=== PATIENT | male | born 1955 | race Caucasian/White ===

== ENCOUNTER 2017-06-15 21:01 | Inpatient (IN) | payer OTHER, MEDICAID ==
[~2017-06-15] VITALS: Ht 193 cm; Wt 88.5 kg
[~2017-06-15 21:01] MED LIST: DILANTIN100 MG ORAL; ISENTRESS400 MG PO; LEVETIRACETAM750 MG PO; NORVIR100 M2 PO; PRINIVIL20 MG ORAL; PROZAC10 MG ORAL; TRUVADA1 TAB PO; UNOBMED; ZIDOVUDINE300 MG PO; [UNRECOGNIZED DRUG - OTHER]; antiviral; vitamins
[2017-06-15 22:00] VITALS: BP 152/82
--- NOTE | 2017-06-15 22:19 | Emergency Room Report ---
History of Present Illness General Chief Complaint: Seizure Source: Patient Present Illness HPI 61-year-old male, history of seizures, HIV (unknown CD4 count ), presenting with seizure. History obtained by EMS, states that patient was found on the street, patient stated that he had a seizure prior to EMS arrival. EMS found him awake alert, intoxicated. Patient is ANO x2, however not providing good history. Denies drinking or drugs today. Patient states that he gets seizures "all the time", states that he does not take his phenytoin States that he is currently homeless Patient denying any complaints at this time Allergies: Coded Allergies: CHLORPROMAZINE (Unverified Allergy, Unknown, 02/04/16) Patient History Past Medical History: see triage record Past Surgical History: none Pertinent Family History: none Reviewed Nursing Documentation: PMH: Agreed, PSxH: Agreed Nursing Documentation-PMH Hx Cardiac Problems: No - HIV Hx Hypertension: Yes Hx Diabetes: Yes Hx Cancer: No Hx Gastrointestinal Problems: No Hx Neurological Problems: Yes Hx Cerebrovascular Accident: Yes Hx Seizures: Yes Review of Systems All Other Systems: negative except mentioned in HPI Physical Exam Vital Signs Date Time Temp Pulse Resp B/P (MAP) Pulse Ox O2 Delivery O2 Flow Rate FiO2 06/15/17 21:53 98.1 80 16 152/82 100 Room Air Sp02 EP Interpretation: reviewed, normal General Appearance: non-toxic, other - Disheveled middle aged male, intoxicated , however conversing, following commands Head: normocephalic, atraumatic Eyes: bilateral eye normal inspection, bilateral eye PERRL, bilateral eye EOMI ENT: normal ENT inspection, normal pharynx, normal voice, moist mucus membranes Neck: normal inspection, full range of motion, supple Respiratory: normal inspection, lungs clear, normal breath sounds, no respiratory distress, no retraction, no wheezing, speaking full sentences, chest symmetrical Cardiovascular #1: normal inspection, regular rate, rhythm, no edema, normal capillary refill Cardiovascular #2: 2+ radial (R), 2+ radial (L) Gastrointestinal: normal inspection, non tender, soft, non-distended, no guarding Genitourinary: no CVA tenderness Musculoskeletal: normal inspection, back normal, normal range of motion, non- tender Neurologic: normal inspection, alert, oriented x3, responsive, motor strength/ tone normal, sensory intact, normal gait, speech normal Psychiatric: normal inspection, judgement/insight normal, memory normal Skin: normal inspection, normal color, no rash, warm/dry, well hydrated, normal turgor Medical Decision Making Diagnostic Impression: Primary Impression: Seizure disorder Additional Impression: Acute alcoholic intoxication ER Course 61-year-old male with seizures, presenting with seizure DDX: Primary seizures, noncompliant with medication Intracranial bleed/CVA Alcohol Tox, electrolyte disturbance Plan: Obtain labs, ua, EKG, CT head ER course: Patient has been monitored during ED stay, HD stable Sleeping comfortably, NAD CT head is negative No further seizures in the emergency room Phenytoin given, fluids given alcohol level > 200 Disposition: Patient is to be admitted to telemetry D/w Dr Underwood (associate of Dr Barnett) Please note that this Emergency Department Report was dictated using [employer] registered nurse technology software, occasionally this can lead to erroneous entry secondary to interpretation by the dictation equipment. Laboratory Tests Test 06/15/17 22:50 White Blood Count 4.5 K/UL (4.8-10.8) L Red Blood Count 3.50 M/UL (4.70-6.10) L Hemoglobin 11.7 G/DL (14.2-18.0) L Hematocrit 34.7 % (42.0-52.0) L Mean Corpuscular Volume 99 FL (80-99) Mean Corpuscular Hemoglobin 33.5 PG (27.0-31.0) H Mean Corpuscular Hemoglobin Concent 33.8 G/DL (32.0-36.0) Red Cell Distribution Width 14.3 % (11.6-14.8) Platelet Count 183 K/UL (150-450) Mean Platelet Volume 7.7 FL (6.5-10.1) Neutrophils (%) (Auto) 40.5 % (45.0-75.0) L Lymphocytes (%) (Auto) 45.6 % (20.0-45.0) H Monocytes (%) (Auto) 9.9 % (1.0-10.0) Eosinophils (%) (Auto) 2.5 % (0.0-3.0) Basophils (%) (Auto) 1.4 % (0.0-2.0) Urine Color Pale yellow Urine Appearance Clear Urine pH 6 (4.5-8.0) Urine Specific [place] 1.010 (1.005-1.035) Urine Protein Negative (NEGATIVE) Urine Glucose (UA) Negative (NEGATIVE) Urine Ketones Negative (NEGATIVE) Urine Occult Blood Negative (NEGATIVE) Urine Nitrite Negative (NEGATIVE) Urine Bilirubin Negative (NEGATIVE) Urine Urobilinogen Normal MG/DL (0.0-1.0) Urine Leukocyte Esterase Negative (NEGATIVE) Sodium Level 137 mEQ/L (135-145) Potassium Level 4.5 mEQ/L (3.4-4.9) Chloride Level 99 mEQ/L (98-107) Carbon Dioxide Level 26 mEQ/L (20-30) Anion Gap 12 (5-15) Blood Urea Nitrogen 13 mg/dL (7-23) Creatinine 0.9 mg/dL (0.7-1.2) Estimate Glomerular Filtration Rate > 60 mL/min (>60) Glucose Level 101 mg/dL (74-106) Calcium Level 8.4 mg/dL (8.6-10.2) L Total Bilirubin 0.5 mg/dL (0.0-1.2) Aspartate Amino Transferase (AST) 44 U/L (5-40) H Alanine Aminotransferase (ALT) 18 U/L (3-41) Alkaline Phosphatase 109 U/L (40-129) Total Creatine Kinase 419 U/L (38-174) H Creatine Kinase MB 7.6 ng/mL (< 6.7) H Creatine Kinase MB Relative Index 1.8 Troponin I < 0.30 ng/mL (<=0.30) Total Protein 7.7 g/dL (6.6-8.7) Albumin 3.6 g/dL (3.5-5.2) Globulin 4.1 g/dL Albumin/Globulin Ratio 0.8 (1.0-2.7) L Urine Opiates Screen Negative (NEGATIVE) Urine Barbiturates Screen Negative (NEGATIVE) Phenytoin (Dilantin) Level < 0.8 ug/mL (10-20) L Phencyclidine (PCP) Screen Negative (NEGATIVE) Urine Amphetamines Screen Negative (NEGATIVE) Urine Benzodiazepines Screen Negative (NEGATIVE) Urine Cocaine Screen Negative (NEGATIVE) Urine Marijuana (THC) Screen Negative (NEGATIVE) Serum Alcohol 263 mg/dL EKG Diagnostic Results Rate: normal Rhythm: NSR ST Segments: no acute changes ASA given to the pt in ED: No Rhythm Strip Diag. Results EP Interpretation: yes Rate: 70 Rhythm: NSR, no PVC's, no ectopy Chest X-Ray Diagnostic Results Chest X-Ray Diagnostic Results : Chest X-Ray Ordered: Yes # of Views/Limited/Complete: 1 View Indication: Other EP Interpretation: Yes Interpretation: no consolidation, no effusion, no pneumothorax, no acute cardiopulmonary disease Impression: No acute disease Electronically Signed by: Electronically signed by Albert Swenson MD CT/MRI/US Diagnostic Results CT/MRI/US Diagnostic Results #1: Imaging Test Ordered: CT head Impression CT HEAD: No intracranial hemorrhage or skull fracture. Atrophy with small vessel disease. Bifrontal encephalomalacia. CT/MRI/US Diagnostic Results #2: Imaging Test Ordered: CT C spine Impression CT C SPINE: No fracture or malalignment. Anterior translation or subluxations of the tmj's. Correlate. Degenerative changes. Dental related disease. Old the fracture of the right zygomatic arch. Last Vital Signs Date Time Temp Pulse Resp B/P (MAP) Pulse Ox O2 Delivery O2 Flow Rate FiO2 06/15/17 21:53 98.1 80 16 152/82 100 Room Air Disposition: ADMITTED INPATIENT Condition: Serious Albert Swenson M.D. Jun 15, 2017 22:18
[2017-06-15 23:18] LABS: APPEARANCE,URINE CLEAR; BASOPHILS % (AUTO) 1.4 % (0.0-2.0); EOSINOPHILS % (AUTO) 2.5 % (0.0-3.0); KETONES,URINE NEGATIVE (NEGATIVE); LEUKOCYTE ESTERASE ,URINE NEGATIVE (NEGATIVE); LYMPHOCYTES % (AUTO) 45.6 % (20.0-45.0); MEAN CORPUSCULAR HEMOGLOBIN 33.5 PG (27.0-31.0); MEAN CORPUSCULAR HGB CONC 33.8 G/DL (32.0-36.0); MEAN CORPUSCULAR VOLUME 99 FL (80-99); MEAN PLATELET VOLUME 7.7 FL (6.5-10.1); MONOCYTES % (AUTO) 9.9 % (1.0-10.0); NEUTROPHILS % (AUTO) 40.5 % (45.0-75.0); NITRITE,URINE NEGATIVE (NEGATIVE); PH,URINE 6 (4.5-8.0); PLATELET COUNT 183 K/UL (150-450); PROTEIN,URINE NEGATIVE (NEGATIVE); RED CELL DISTRIBUTION WIDTH 14.3 % (11.6-14.8); UROBILINOGEN,URINE NORMAL MG/DL (0.0-1.0); WHITE BLOOD COUNT 4.5 K/UL (4.8-10.8)
[2017-06-15 23:27] LABS: ALANINE AMINOTRANSFERASE 18 U/L (3-41); ALBUMIN/GLOBULIN RATIO 0.8 (1.0-2.7); ANION GAP 12 (5-15); ASPARTATE AMINO TRANSFERASE 44 U/L (5-40); CALCIUM 8.4 mg/dL (8.6-10.2); CARBON DIOXIDE 26 mEQ/L (20-30); CHLORIDE 99 mEQ/L (98-107); CREATININE 0.9 mg/dL (0.7-1.2); GLOMERULAR FILTRATION RATE > 60 mL/min (>60); HEMOLYSIS 143; POTASSIUM 4.5 mEQ/L (3.4-4.9); SODIUM 137 mEQ/L (135-145); TOTAL PROTEIN 7.7 g/dL (6.6-8.7); TROPONIN I < 0.30 ng/mL (<=0.30)
[2017-06-15 23:37] LABS: CKMB 7.6 ng/mL (< 6.7)
[2017-06-16] VITALS (8 sets, daily range): BP systolic 104–151; BP diastolic 58–97
[2017-06-16] MEDS ORDERED: Phenytoin 250mg/5ml vial IVP ONE (00:45)
[2017-06-16] MEDS ORDERED: LORazepam Inj 2mg/ml 1ml IV PRN ×2 (04:00→17:45)
[2017-06-16] MEDS ORDERED: Phenytoin 100mg cap ORAL SCH ×2 (09:00→21:00)
--- NOTE | 2017-06-16 09:02 | Diagnostic Imaging Report ---
Indications: Seizures, status post fall Technique: Spiral acquisitions obtained through the brain. Angled axial and coronal 5 x 5 mm slices were reconstructed. Total dose length product 1488 mGycm. CTDI vol(s) 70 mGy. Dose reduction achieved using automated exposure control Comparison: 02/04/2016 Findings: Demonstrated is bilateral parasagittal frontal encephalomalacia, more extensive on the right than on the left. There is age-related enlargement of ventricles and extra axial CSF spaces. 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 There is periventricular deep white matter chronic ischemic change. No acute intracranial bleed or edema, mass effect or midline shift. The calvarium is intact. No significant interim change Impression: Chronic and age-related changes, as described Negative for acute intracranial bleed or mass effect This agrees with the preliminary interpretation provided overnight by [employer] service. The CT scanner at [facility] is accredited by the [employer] and the scans are performed using protocols designed to limit radiation exposure to as low as reasonably achievable to attain images of sufficient resolution adequate for diagnostic evaluation.
[2017-06-16] MEDS: Isentress 400mg tab ORAL SCH ×2 (09:05→20:33)
[2017-06-16] MEDS: Zidovudine 100mg cap ORAL SCH ×2 (09:05→21:01)
[2017-06-16] MEDS: Lisinopril 20mg tab ORAL SCH ×2 (09:06→17:26)
[2017-06-16] MEDS: Ritonavir 100mg tab ORAL SCH ×2 (09:06→20:33)
--- NOTE | 2017-06-16 09:12 | Diagnostic Imaging Report ---
Indication: FALL, trauma, pain Technique: Spiral acquisitions obtained through the cervical spine. No IV contrast utilized. Multiplanar reconstructions were generated. Total dose length product 294 mGycm. CTDIvol(s) 13 mGy. Dose reduction achieved using automated exposure control Comparison: None Findings: The mandibular condyles are both located anterior to the glenoid fossae. This is symmetric. The cervical bony alignment is normal. No acute fractures. No dislocations. No prevertebral soft tissue swelling. There is an old healed fracture deformity of the right zygomatic arch There is mild degenerative change of the anterior atlantoaxial joint. There is mild degenerative disc narrowing at C2-3. No significant disc bulge or protrusion, spinal stenosis, or neural foraminal stenosis. There is mild bilateral facet degeneration as well, particularly on the right. At C3-4, there is mild degenerative disc narrowing. There is bilateral facet degeneration, resulting in mild neural foraminal stenosis on the left. No significant disc bulge or protrusion or spinal stenosis. At C4-5, the disc space is preserved. There is bilateral facet arthropathy, worse on the left. This results in moderate to severe narrowing of the left neural foramen. No significant disc bulge or protrusion or spinal stenosis. At C5-6, there is minimal degenerative disc narrowing. There is anterior and right lateral proliferative change with bridging osteophytes. There is bilateral facet arthrosis, resulting in minimal right, mild to moderate left neural foraminal stenosis. No significant disc bulge or protrusion or spinal stenosis. At C6-7, there is moderate degenerative disc narrowing area there is facet arthrosis on the. There is mild right, moderate left neural foraminal stenosis, predominantly due to uncinate hypertrophy. No significant disc bulge or protrusion or spinal stenosis. At C7-T1, there is mild degenerative disc narrowing. No significant disc bulge or protrusion, spinal stenosis, or neural foraminal stenosis. The included extraspinal soft tissues are remarkable for the presence of what appears to be a sizable calcification within the left side of the tongue. Impression: No acute bony trauma Degenerative changes, as detailed on a level by level basis above Apparent anterior subluxation of the bilateral temporomandibular joints. As this is symmetrical, it likely represents physiologic translocation due to open-mouth position. However, the mouth does not appear to be open at the time of scanning, and true subluxations cannot be ruled out. Correlate with clinical findings recommended Unusual calcification within the left side of the tongue. Correlate with clinical history and findings This agrees with the preliminary interpretation provided overnight by [facility]. The CT scanner at [facility] is accredited by the [employer] and the scans are performed using protocols designed to limit radiation exposure to as low as reasonably achievable to attain images of sufficient resolution adequate for diagnostic evaluation.
--- NOTE | 2017-06-16 11:57 | Neurology Progress Note ---
Objective Physical Exam Last Vital Signs Date Time Temp Pulse Resp B/P (MAP) Pulse Ox O2 Delivery O2 Flow Rate FiO2 06/16/17 09:06 120/74 06/16/17 08:00 99.1 95 19 97 Room Air Laboratory Tests Test 06/15/17 22:50 White Blood Count 4.5 K/UL (4.8-10.8) L Red Blood Count 3.50 M/UL (4.70-6.10) L Hemoglobin 11.7 G/DL (14.2-18.0) L Hematocrit 34.7 % (42.0-52.0) L Mean Corpuscular Volume 99 FL (80-99) Mean Corpuscular Hemoglobin 33.5 PG (27.0-31.0) H Mean Corpuscular Hemoglobin Concent 33.8 G/DL (32.0-36.0) Red Cell Distribution Width 14.3 % (11.6-14.8) Platelet Count 183 K/UL (150-450) Mean Platelet Volume 7.7 FL (6.5-10.1) Neutrophils (%) (Auto) 40.5 % (45.0-75.0) L Lymphocytes (%) (Auto) 45.6 % (20.0-45.0) H Monocytes (%) (Auto) 9.9 % (1.0-10.0) Eosinophils (%) (Auto) 2.5 % (0.0-3.0) Basophils (%) (Auto) 1.4 % (0.0-2.0) Urine Color Pale yellow Urine Appearance Clear Urine pH 6 (4.5-8.0) Urine Specific [place] 1.010 (1.005-1.035) Urine Protein Negative (NEGATIVE) Urine Glucose (UA) Negative (NEGATIVE) Urine Ketones Negative (NEGATIVE) Urine Occult Blood Negative (NEGATIVE) Urine Nitrite Negative (NEGATIVE) Urine Bilirubin Negative (NEGATIVE) Urine Urobilinogen Normal MG/DL (0.0-1.0) Urine Leukocyte Esterase Negative (NEGATIVE) Sodium Level 137 mEQ/L (135-145) Potassium Level 4.5 mEQ/L (3.4-4.9) Chloride Level 99 mEQ/L (98-107) Carbon Dioxide Level 26 mEQ/L (20-30) Anion Gap 12 (5-15) Blood Urea Nitrogen 13 mg/dL (7-23) Creatinine 0.9 mg/dL (0.7-1.2) Estimat Glomerular Filtration Rate > 60 mL/min (>60) Glucose Level 101 mg/dL (74-106) Calcium Level 8.4 mg/dL (8.6-10.2) L Total Bilirubin 0.5 mg/dL (0.0-1.2) Aspartate Amino Transf (AST/SGOT) 44 U/L (5-40) H Alanine Aminotransferase (ALT/SGPT) 18 U/L (3-41) Alkaline Phosphatase 109 U/L (40-129) Total Creatine Kinase 419 U/L (38-174) H Creatine Kinase MB 7.6 ng/mL (< 6.7) H Creatine Kinase MB Relative Index 1.8 Troponin I < 0.30 ng/mL (<=0.30) Total Protein 7.7 g/dL (6.6-8.7) Albumin 3.6 g/dL (3.5-5.2) Globulin 4.1 g/dL Albumin/Globulin Ratio 0.8 (1.0-2.7) L Urine Opiates Screen Negative (NEGATIVE) Urine Barbiturates Screen Negative (NEGATIVE) Phenytoin (Dilantin) Level < 0.8 ug/mL (10-20) L Phencyclidine (PCP) Screen Negative (NEGATIVE) Urine Amphetamines Screen Negative (NEGATIVE) Urine Benzodiazepines Screen Negative (NEGATIVE) Urine Cocaine Screen Negative (NEGATIVE) Urine Marijuana (THC) Screen Negative (NEGATIVE) Serum Alcohol 263 mg/dL Impression/Recommendations Problems: (1) Epileptic seizure, generalized (2) Noncompliance (3) r/o L leg DVT (4) Acute alcoholic intoxication Status: unchanged Recommendations #[id number] BABAK RAMIREZ Jun 16, 2017 11:57
[2017-06-16] MEDS ORDERED: Thiamine 100mg tab ORAL SCH (12:30)
--- NOTE | 2017-06-16 12:49 | Cardiology Report ---
APPROVED REPORT EKG Measurement Heart [id number] Normal sinus rhythm Normal ECG
--- NOTE | 2017-06-16 13:07 | Diagnostic Imaging Report ---
Indication: Dyspnea Technique: One view of the chest Comparison: 08/04/2008 Findings: Lungs and pleural spaces are clear. Heart size is upper limits of normal. No significant change Impression: No acute process This agrees with the preliminary interpretation provided by the emergency room physician.
--- NOTE | 2017-06-16 13:41 | History and Physical ---
History of Present Illness General Date patient seen: Jun 16, 2017 Time patient seen: 14:00 Reason for Hospitalization: Seizure Present Illness HPI 61yo male with pmh of HIV (unknown CD4 count, noncompliant w/ HAART), seizures ( noncompliant with AEDs) who presents with seizure. Per EMS, states that patient was found on the street, patient stated that he had a seizure prior to EMS arrival. EMS found him awake alert, intoxicated. Pt is poor historian. He said he was off all his meds for abt 1 week since he couldnot get refills as his PCP was out of town. He later stated he was off all meds for 1 month. Pt states he is currently homeless and lives in a detention. Denies f/c, n/v, d/c, chest pain, SOB, abd pain, dysuria. In ED, CT head and C-spine w/ no acute abnormality. Allergies: Coded Allergies: CHLORPROMAZINE (Unverified Allergy, Unknown, 02/04/16) Medication History Scheduled Emtricitabine/Tenofovir (Truvada 200 mg-300 mg Tablet), 1 TAB PO DAILY, ( Reported) Fluoxetine Hcl* (Prozac*), 10 MG ORAL TWICE A DAY, (Reported) Levetiracetam (Levetiracetam), 750 MG PO BID, (Reported) Lisinopril* (Prinivil*), 20 MG ORAL BID Phenytoin Sodium Extended* (Dilantin*), 300 MG ORAL BEDTIME, (Reported) Phenytoin Sodium Extended* (Dilantin*), 100 MG ORAL THREE TIMES A DAY Raltegravir (Isentress), 400 MG PO BID, (Reported) Ritonavir (Norvir), 100 MG PO DAILY, (Reported) Zidovudine (Zidovudine), 300 MG PO BID, (Reported) Miscellaneous Medications Unable to Obtain Medications (Unable To Obtain Meds), (Reported) [antiviral], (Reported) [for htn], (Reported) [vitamins], (Reported) Patient History History Provided By: Patient, Medical Record, EMS Healthcare decision maker Resuscitation status Full Code Advanced Directive on File Past Medical/Surgical History Past Medical/Surgical History: (1) Depression (2) HIV disease (3) Seizure disorder (4) Medical non-compliance (5) Hypertension Family History Family History: Patient reports no known family medical history. Social History Social History: (1) Homeless (2) Alcohol abuse Review of Systems ROS Narrative CONSTITUTIONAL: No weight loss, fever, chills, weakness or fatigue. HEENT: Eyes: No visual loss, blurred vision, double vision or yellow sclerae. Ears, Nose, Throat: No hearing loss, sneezing, congestion, runny nose or sore throat. SKIN: No rash or itching. CARDIOVASCULAR: No chest pain, chest pressure or chest discomfort. No palpitations or edema. RESPIRATORY: No shortness of breath, cough or sputum. GASTROINTESTINAL: No anorexia, nausea, vomiting or diarrhea. No abdominal pain or blood. NEUROLOGICAL: No headache, dizziness, syncope, paralysis, ataxia, numbness or tingling in the extremities. No change in bowel or bladder control. MUSCULOSKELETAL: No muscle, back pain, joint pain or stiffness. HEMATOLOGIC: No anemia, bleeding or bruising. LYMPHATICS: No enlarged nodes. No history of splenectomy. PSYCHIATRIC: No history of depression or anxiety. ENDOCRINOLOGIC: No reports of sweating, cold or heat intolerance. No polyuria or polydipsia. ALLERGIES: No history of asthma, hives, eczema or rhinitis. Physical Exam Physical Exam Narrative General: alert, cooperative, no distress, appears stated age Head: normocephalic, without obvious abnormality, atraumatic Eyes: conjunctivae/corneas clear. PERRL, EOM's intact Throat: lips, mucosa, and tongue normal. MMM Neck: supple, symmetrical, trachea midline, and no JVD Lungs: clear to auscultation bilaterally Heart: regular rate and rhythm, S1, S2 normal, no murmur, click, rub or gallop Abdomen: soft, non-tender, non-distended, bowel sounds normal; no masses or organomegaly Extremities: extremities normal, atraumatic, no cyanosis or edema Pulses: 2+ and symmetric Skin: skin color, texture, turgor normal; no rashes or lesions Neurologic: grossly normal, no focal deficits Last 24 Hour Vital Signs Date Time Temp Pulse Resp B/P (MAP) Pulse Ox O2 Delivery O2 Flow Rate FiO2 06/16/17 12:00 99.5 107 20 131/75 95 Room Air 06/16/17 11:57 95 06/16/17 09:06 120/74 06/16/17 08:00 99.1 95 19 120/74 97 Room Air 06/16/17 07:39 105 06/16/17 04:00 78 06/16/17 04:00 97.7 79 20 128/82 98 Room Air 06/16/17 03:29 98.0 80 14 104/58 96 Room Air 06/16/17 02:29 98.0 80 14 104/58 96 Room Air 06/16/17 00:41 98.1 87 13 112/84 96 Room Air 06/15/17 22:00 80 16 Room Air 06/15/17 22:00 98.1 63 16 152/82 100 Room Air 06/15/17 21:53 98.1 80 16 152/82 100 Room Air Laboratory Tests Test 06/15/17 22:50 White Blood Count 4.5 K/UL (4.8-10.8) L Red Blood Count 3.50 M/UL (4.70-6.10) L Hemoglobin 11.7 G/DL (14.2-18.0) L Hematocrit 34.7 % (42.0-52.0) L Mean Corpuscular Volume 99 FL (80-99) Mean Corpuscular Hemoglobin 33.5 PG (27.0-31.0) H Mean Corpuscular Hemoglobin Concent 33.8 G/DL (32.0-36.0) Red Cell Distribution Width 14.3 % (11.6-14.8) Platelet Count 183 K/UL (150-450) Mean Platelet Volume 7.7 FL (6.5-10.1) Neutrophils (%) (Auto) 40.5 % (45.0-75.0) L Lymphocytes (%) (Auto) 45.6 % (20.0-45.0) H Monocytes (%) (Auto) 9.9 % (1.0-10.0) Eosinophils (%) (Auto) 2.5 % (0.0-3.0) Basophils (%) (Auto) 1.4 % (0.0-2.0) Urine Color Pale yellow Urine Appearance Clear Urine pH 6 (4.5-8.0) Urine Specific [place] 1.010 (1.005-1.035) Urine Protein Negative (NEGATIVE) Urine Glucose (UA) Negative (NEGATIVE) Urine Ketones Negative (NEGATIVE) Urine Occult Blood Negative (NEGATIVE) Urine Nitrite Negative (NEGATIVE) Urine Bilirubin Negative (NEGATIVE) Urine Urobilinogen Normal MG/DL (0.0-1.0) Urine Leukocyte Esterase Negative (NEGATIVE) Sodium Level 137 mEQ/L (135-145) Potassium Level 4.5 mEQ/L (3.4-4.9) Chloride Level 99 mEQ/L (98-107) Carbon Dioxide Level 26 mEQ/L (20-30) Anion Gap 12 (5-15) Blood Urea Nitrogen 13 mg/dL (7-23) Creatinine 0.9 mg/dL (0.7-1.2) Estimat Glomerular Filtration Rate > 60 mL/min (>60) Glucose Level 101 mg/dL (74-106) Calcium Level 8.4 mg/dL (8.6-10.2) L Total Bilirubin 0.5 mg/dL (0.0-1.2) Aspartate Amino Transf (AST/SGOT) 44 U/L (5-40) H Alanine Aminotransferase (ALT/SGPT) 18 U/L (3-41) Alkaline Phosphatase 109 U/L (40-129) Total Creatine Kinase 419 U/L (38-174) H Creatine Kinase MB 7.6 ng/mL (< 6.7) H Creatine Kinase MB Relative Index 1.8 Troponin I < 0.30 ng/mL (<=0.30) Total Protein 7.7 g/dL (6.6-8.7) Albumin 3.6 g/dL (3.5-5.2) Globulin 4.1 g/dL Albumin/Globulin Ratio 0.8 (1.0-2.7) L Urine Opiates Screen Negative (NEGATIVE) Urine Barbiturates Screen Negative (NEGATIVE) Phenytoin (Dilantin) Level < 0.8 ug/mL (10-20) L Phencyclidine (PCP) Screen Negative (NEGATIVE) Urine Amphetamines Screen Negative (NEGATIVE) Urine Benzodiazepines Screen Negative (NEGATIVE) Urine Cocaine Screen Negative (NEGATIVE) Urine Marijuana (THC) Screen Negative (NEGATIVE) Serum Alcohol 263 mg/dL Height (Feet): 6 Height (Inches): 4.00 Weight (Pounds): 195 Medications Current Medications Medications (Trade) Dose Ordered Sig/Pauline Route PRN Reason Start Time Stop Time Status Last Admin Dose Admin Emtricitabine/ Tenofovir (Truvada 200/ 300mg) 1 tab DAILY ORAL 06/16/17 09:00 07/16/17 08:59 06/16/17 09:05 Levetiracetam (Keppra) 750 mg BID ORAL 06/16/17 09:00 07/16/17 08:59 06/16/17 09:06 Levetiracetam (Keppra) 750 mg ONCE ORAL 06/16/17 04:45 07/16/17 04:44 06/16/17 04:50 Lisinopril (Prinivil) 20 mg BID ORAL 06/16/17 09:00 07/16/17 08:59 06/16/17 09:06 Lorazepam (Ativan 2mg/ml 1ml) 1 mg Q1HR PRN IV For Seizures 06/16/17 04:00 06/23/17 03:59 Phenytoin (Dilantin) 300 mg BEDTIME ORAL 06/16/17 21:00 07/16/17 20:59 Raltegravir (Isentress) 400 mg Q12HR ORAL 06/16/17 09:00 07/16/17 08:59 06/16/17 09:05 Ritonavir (Norvir) 100 mg DAILY ORAL 06/16/17 09:00 07/16/17 08:59 06/16/17 09:06 Thiamine HCl (Vitamin B1) 100 mg DAILY ORAL 06/16/17 12:30 07/16/17 12:29 06/16/17 12:40 Zidovudine (Retrovir) 300 mg Q12HR ORAL 06/16/17 09:00 07/16/17 08:59 06/16/17 09:05 Assessment/Plan Problem List: (1) Seizure disorder ICD Codes: G40.909 - Epilepsy, unspecified, not intractable,without status epilepticus SNOMED: 929336280 (2) HIV disease ICD Codes: B20 - Human immunodeficiency virus [HIV] disease SNOMED: 25663474 (3) Medical non-compliance ICD Codes: Z91.19 - Patient's noncompliance with other medical treatment and regimen SNOMED: 295156804 (4) Depression ICD Codes: F32.9 - Major depressive disorder, single episode, unspecified SNOMED: 34417473 (5) Homeless ICD Codes: Z59.0 - Homelessness SNOMED: 67640440 Status: stable Assessment/Plan Admit inpt Neurology and ID consulted Resume AEDs Seizure precautions Check CD4 count Cont HAART Check BLE venous duplex HSQ for DVT ppx SW consult given homeless and substance abuse FULL CODE D/w pt, RN, ID and neuro regarding mgmt and dispo Kevin Alegria M.D. Jun 16, 2017 13:41
--- NOTE | 2017-06-16 15:17 | Consultation ---
History of Present Illness General Chief Complaint: Seizure Present Illness Allergies: Coded Allergies: CHLORPROMAZINE (Unverified Allergy, Unknown, 02/04/16) Medication History Scheduled Emtricitabine/Tenofovir (Truvada 200 mg-300 mg Tablet), 1 TAB PO DAILY, ( Reported) Fluoxetine Hcl* (Prozac*), 10 MG ORAL TWICE A DAY, (Reported) Levetiracetam (Levetiracetam), 750 MG PO BID, (Reported) Lisinopril* (Prinivil*), 20 MG ORAL BID Phenytoin Sodium Extended* (Dilantin*), 300 MG ORAL BEDTIME, (Reported) Phenytoin Sodium Extended* (Dilantin*), 100 MG ORAL THREE TIMES A DAY Raltegravir (Isentress), 400 MG PO BID, (Reported) Ritonavir (Norvir), 100 MG PO DAILY, (Reported) Zidovudine (Zidovudine), 300 MG PO BID, (Reported) Miscellaneous Medications Unable to Obtain Medications (Unable To Obtain Meds), (Reported) [antiviral], (Reported) [for htn], (Reported) [vitamins], (Reported) Patient History Healthcare decision maker Resuscitation status Full Code Advanced Directive on File Physical Exam Last 24 Hour Vital Signs Date Time Temp Pulse Resp B/P (MAP) Pulse Ox O2 Delivery O2 Flow Rate FiO2 06/16/17 12:00 99.5 107 20 131/75 95 Room Air 06/16/17 11:57 95 06/16/17 09:06 120/74 06/16/17 08:00 99.1 95 19 120/74 97 Room Air 06/16/17 07:39 105 06/16/17 04:00 78 06/16/17 04:00 97.7 79 20 128/82 98 Room Air 06/16/17 03:29 98.0 80 14 104/58 96 Room Air 06/16/17 02:29 98.0 80 14 104/58 96 Room Air 06/16/17 00:41 98.1 87 13 112/84 96 Room Air 06/15/17 22:00 80 16 Room Air 06/15/17 22:00 98.1 63 16 152/82 100 Room Air 06/15/17 21:53 98.1 80 16 152/82 100 Room Air Laboratory Tests Test 06/15/17 22:50 White Blood Count 4.5 K/UL (4.8-10.8) L Red Blood Count 3.50 M/UL (4.70-6.10) L Hemoglobin 11.7 G/DL (14.2-18.0) L Hematocrit 34.7 % (42.0-52.0) L Mean Corpuscular Volume 99 FL (80-99) Mean Corpuscular Hemoglobin 33.5 PG (27.0-31.0) H Mean Corpuscular Hemoglobin Concent 33.8 G/DL (32.0-36.0) Red Cell Distribution Width 14.3 % (11.6-14.8) Platelet Count 183 K/UL (150-450) Mean Platelet Volume 7.7 FL (6.5-10.1) Neutrophils (%) (Auto) 40.5 % (45.0-75.0) L Lymphocytes (%) (Auto) 45.6 % (20.0-45.0) H Monocytes (%) (Auto) 9.9 % (1.0-10.0) Eosinophils (%) (Auto) 2.5 % (0.0-3.0) Basophils (%) (Auto) 1.4 % (0.0-2.0) Urine Color Pale yellow Urine Appearance Clear Urine pH 6 (4.5-8.0) Urine Specific [place] 1.010 (1.005-1.035) Urine Protein Negative (NEGATIVE) Urine Glucose (UA) Negative (NEGATIVE) Urine Ketones Negative (NEGATIVE) Urine Occult Blood Negative (NEGATIVE) Urine Nitrite Negative (NEGATIVE) Urine Bilirubin Negative (NEGATIVE) Urine Urobilinogen Normal MG/DL (0.0-1.0) Urine Leukocyte Esterase Negative (NEGATIVE) Sodium Level 137 mEQ/L (135-145) Potassium Level 4.5 mEQ/L (3.4-4.9) Chloride Level 99 mEQ/L (98-107) Carbon Dioxide Level 26 mEQ/L (20-30) Anion Gap 12 (5-15) Blood Urea Nitrogen 13 mg/dL (7-23) Creatinine 0.9 mg/dL (0.7-1.2) Estimat Glomerular Filtration Rate > 60 mL/min (>60) Glucose Level 101 mg/dL (74-106) Calcium Level 8.4 mg/dL (8.6-10.2) L Total Bilirubin 0.5 mg/dL (0.0-1.2) Aspartate Amino Transf (AST/SGOT) 44 U/L (5-40) H Alanine Aminotransferase (ALT/SGPT) 18 U/L (3-41) Alkaline Phosphatase 109 U/L (40-129) Total Creatine Kinase 419 U/L (38-174) H Creatine Kinase MB 7.6 ng/mL (< 6.7) H Creatine Kinase MB Relative Index 1.8 Troponin I < 0.30 ng/mL (<=0.30) Total Protein 7.7 g/dL (6.6-8.7) Albumin 3.6 g/dL (3.5-5.2) Globulin 4.1 g/dL Albumin/Globulin Ratio 0.8 (1.0-2.7) L Urine Opiates Screen Negative (NEGATIVE) Urine Barbiturates Screen Negative (NEGATIVE) Phenytoin (Dilantin) Level < 0.8 ug/mL (10-20) L Phencyclidine (PCP) Screen Negative (NEGATIVE) Urine Amphetamines Screen Negative (NEGATIVE) Urine Benzodiazepines Screen Negative (NEGATIVE) Urine Cocaine Screen Negative (NEGATIVE) Urine Marijuana (THC) Screen Negative (NEGATIVE) Serum Alcohol 263 mg/dL Height (Feet): 6 Height (Inches): 4.00 Weight (Pounds): 195 Medications Current Medications Medications (Trade) Dose Ordered Sig/Pauline Route PRN Reason Start Time Stop Time Status Last Admin Dose Admin Emtricitabine/ Tenofovir (Truvada 200/ 300mg) 1 tab DAILY ORAL 06/16/17 09:00 07/16/17 08:59 06/16/17 09:05 Levetiracetam (Keppra) 750 mg BID ORAL 06/16/17 09:00 07/16/17 08:59 06/16/17 09:06 Levetiracetam (Keppra) 750 mg ONCE ORAL 06/16/17 04:45 07/16/17 04:44 06/16/17 04:50 Lisinopril (Prinivil) 20 mg BID ORAL 06/16/17 09:00 07/16/17 08:59 06/16/17 09:06 Lorazepam (Ativan 2mg/ml 1ml) 1 mg Q1HR PRN IV For Seizures 06/16/17 04:00 06/23/17 03:59 Phenytoin (Dilantin) 300 mg BEDTIME ORAL 06/16/17 21:00 07/16/17 20:59 Raltegravir (Isentress) 400 mg Q12HR ORAL 06/16/17 09:00 07/16/17 08:59 06/16/17 09:05 Ritonavir (Norvir) 100 mg DAILY ORAL 06/16/17 09:00 07/16/17 08:59 06/16/17 09:06 Thiamine HCl (Vitamin B1) 100 mg DAILY ORAL 06/16/17 12:30 07/16/17 12:29 06/16/17 12:40 Zidovudine (Retrovir) 300 mg Q12HR ORAL 06/16/17 09:00 07/16/17 08:59 06/16/17 09:05 [facility] Busch NP Jun 16, 2017 15:17
--- NOTE | 2017-06-16 17:32 | Consultation ---
History of Present Illness General Date patient seen: Jun 16, 2017 Time patient seen: 16:00 Chief Complaint: Seizure Referring physician: dr Barnett Reason for Consultation: inpatient management Present Illness HPI 61yo male with PMH of HIV (unknown CD4 count, noncompliant w/ HAART), seizure disorder (noncompliant with treatment), presented with seizure activity. Per EMS, patient was found on the street, patient reported having seizure prior to EMS arrival. EMS found him awake alert, intoxicated. Pt was a poor historian. He stated that he run off his meds for 1 week and was unable to get refills. since his PCP was out of town and then changed his story Patient reported being homeless and living in a group home. Denied fevers/ chills, n/v/diarrhea , abdominal pain No chest randall, no SOB, no dysuria urine tox screen was negative serum ETOH level-263 Dilantin level low-0.[address] head no acute intracranial pathology CXR no acute pathology CT L spine no acute bony trauma mild anemia -11.7/34.7 CK 4190 CK-MB 7.6 patietn was admitted for further management Allergies: Coded Allergies: CHLORPROMAZINE (Unverified Allergy, Unknown, 02/04/16) Medication History Scheduled Emtricitabine/Tenofovir (Truvada 200 mg-300 mg Tablet), 1 TAB PO DAILY, ( Reported) Fluoxetine Hcl* (Prozac*), 10 MG ORAL TWICE A DAY, (Reported) Levetiracetam (Levetiracetam), 750 MG PO BID, (Reported) Lisinopril* (Prinivil*), 20 MG ORAL BID Phenytoin Sodium Extended* (Dilantin*), 300 MG ORAL BEDTIME, (Reported) Phenytoin Sodium Extended* (Dilantin*), 100 MG ORAL THREE TIMES A DAY Raltegravir (Isentress), 400 MG PO BID, (Reported) Ritonavir (Norvir), 100 MG PO DAILY, (Reported) Zidovudine (Zidovudine), 300 MG PO BID, (Reported) Miscellaneous Medications Unable to Obtain Medications (Unable To Obtain Meds), (Reported) [antiviral], (Reported) [for htn], (Reported) [vitamins], (Reported) Patient History History Provided By: Patient Healthcare decision maker Resuscitation status Full Code Advanced Directive on File Past Medical/Surgical History Past Medical/Surgical History: (1) Seizure disorder (2) Hypertension (3) HIV disease (4) Medical non-compliance Review of Systems Constitutional: Reports: weakness Eye: Reports: no symptoms ENT: Reports: no symptoms Respiratory: Reports: no symptoms Cardiovascular: Reports: no symptoms Gastrointestinal: Reports: no symptoms Genitourinary: Reports: no symptoms Musculoskeletal: Reports: no symptoms Psychiatric: Reports: depressed feelings Neurological: Reports: see HPI Endocrine: Reports: no symptoms Hematologic/Lymphatic: Reports: anemia, other - HIV Physical Exam General Appearance: no apparent distress, alert Lines, tubes and drains: peripheral HEENT: normocephalic, atraumatic, anicteric Neck: non-tender, supple Respiratory/Chest: lungs clear, no respiratory distress, no accessory muscle use Cardiovascular/Chest: normal rate, regular rhythm, no JVD Abdomen: normal bowel sounds, non tender, soft Extremities: normal range of motion, no calf tenderness Skin Exam: warm/dry Neurologic: no motor/sensory deficits, alert, responsive Musculoskeletal: normal muscle bulk Last 24 Hour Vital Signs Date Time Temp Pulse Resp B/P (MAP) Pulse Ox O2 Delivery O2 Flow Rate FiO2 06/16/17 16:00 99.1 94 21 150/90 95 Room Air 06/16/17 12:00 99.5 107 20 131/75 95 Room Air 06/16/17 11:57 95 06/16/17 09:06 120/74 06/16/17 08:00 99.1 95 19 120/74 97 Room Air 06/16/17 07:39 105 06/16/17 04:00 78 06/16/17 04:00 97.7 79 20 128/82 98 Room Air 06/16/17 03:29 98.0 80 14 104/58 96 Room Air 06/16/17 02:29 98.0 80 14 104/58 96 Room Air 06/16/17 00:41 98.1 87 13 112/84 96 Room Air 06/15/17 22:00 80 16 Room Air 06/15/17 22:00 98.1 63 16 152/82 100 Room Air 06/15/17 21:53 98.1 80 16 152/82 100 Room Air Laboratory Tests Test 06/15/17 22:50 White Blood Count 4.5 K/UL (4.8-10.8) L Red Blood Count 3.50 M/UL (4.70-6.10) L Hemoglobin 11.7 G/DL (14.2-18.0) L Hematocrit 34.7 % (42.0-52.0) L Mean Corpuscular Volume 99 FL (80-99) Mean Corpuscular Hemoglobin 33.5 PG (27.0-31.0) H Mean Corpuscular Hemoglobin Concent 33.8 G/DL (32.0-36.0) Red Cell Distribution Width 14.3 % (11.6-14.8) Platelet Count 183 K/UL (150-450) Mean Platelet Volume 7.7 FL (6.5-10.1) Neutrophils (%) (Auto) 40.5 % (45.0-75.0) L Lymphocytes (%) (Auto) 45.6 % (20.0-45.0) H Monocytes (%) (Auto) 9.9 % (1.0-10.0) Eosinophils (%) (Auto) 2.5 % (0.0-3.0) Basophils (%) (Auto) 1.4 % (0.0-2.0) Urine Color Pale yellow Urine Appearance Clear Urine pH 6 (4.5-8.0) Urine Specific [place] 1.010 (1.005-1.035) Urine Protein Negative (NEGATIVE) Urine Glucose (UA) Negative (NEGATIVE) Urine Ketones Negative (NEGATIVE) Urine Occult Blood Negative (NEGATIVE) Urine Nitrite Negative (NEGATIVE) Urine Bilirubin Negative (NEGATIVE) Urine Urobilinogen Normal MG/DL (0.0-1.0) Urine Leukocyte Esterase Negative (NEGATIVE) Sodium Level 137 mEQ/L (135-145) Potassium Level 4.5 mEQ/L (3.4-4.9) Chloride Level 99 mEQ/L (98-107) Carbon Dioxide Level 26 mEQ/L (20-30) Anion Gap 12 (5-15) Blood Urea Nitrogen 13 mg/dL (7-23) Creatinine 0.9 mg/dL (0.7-1.2) Estimat Glomerular Filtration Rate > 60 mL/min (>60) Glucose Level 101 mg/dL (74-106) Calcium Level 8.4 mg/dL (8.6-10.2) L Total Bilirubin 0.5 mg/dL (0.0-1.2) Aspartate Amino Transf (AST/SGOT) 44 U/L (5-40) H Alanine Aminotransferase (ALT/SGPT) 18 U/L (3-41) Alkaline Phosphatase 109 U/L (40-129) Total Creatine Kinase 419 U/L (38-174) H Creatine Kinase MB 7.6 ng/mL (< 6.7) H Creatine Kinase MB Relative Index 1.8 Troponin I < 0.30 ng/mL (<=0.30) Total Protein 7.7 g/dL (6.6-8.7) Albumin 3.6 g/dL (3.5-5.2) Globulin 4.1 g/dL Albumin/Globulin Ratio 0.8 (1.0-2.7) L Urine Opiates Screen Negative (NEGATIVE) Urine Barbiturates Screen Negative (NEGATIVE) Phenytoin (Dilantin) Level < 0.8 ug/mL (10-20) L Phencyclidine (PCP) Screen Negative (NEGATIVE) Urine Amphetamines Screen Negative (NEGATIVE) Urine Benzodiazepines Screen Negative (NEGATIVE) Urine Cocaine Screen Negative (NEGATIVE) Urine Marijuana (THC) Screen Negative (NEGATIVE) Serum Alcohol 263 mg/dL Height (Feet): 6 Height (Inches): 4.00 Weight (Pounds): 195 Medications Current Medications Medications (Trade) Dose Ordered Sig/Pauline Route PRN Reason Start Time Stop Time Status Last Admin Dose Admin Emtricitabine/ Tenofovir (Truvada 200/ 300mg) 1 tab DAILY ORAL 06/16/17 09:00 07/16/17 08:59 06/16/17 09:05 Heparin Sodium (Porcine) (Heparin 5000 units/ml) 5,000 units EVERY 12 HOURS SUBQ 06/16/17 21:00 07/16/17 20:59 Levetiracetam (Keppra) 750 mg BID ORAL 06/16/17 09:00 07/16/17 08:59 06/16/17 09:06 Levetiracetam (Keppra) 750 mg ONCE ORAL 06/16/17 04:45 07/16/17 04:44 06/16/17 04:50 Lisinopril (Prinivil) 20 mg BID ORAL 06/16/17 09:00 07/16/17 08:59 06/16/17 09:06 Lorazepam (Ativan 2mg/ml 1ml) 1 mg Q1HR PRN IV For Seizures 06/16/17 04:00 06/23/17 03:59 Phenytoin (Dilantin) 300 mg BEDTIME ORAL 06/16/17 21:00 07/16/17 20:59 Raltegravir (Isentress) 400 mg Q12HR ORAL 06/16/17 09:00 07/16/17 08:59 06/16/17 09:05 Ritonavir (Norvir) 100 mg DAILY ORAL 06/16/17 09:00 07/16/17 08:59 06/16/17 09:06 Thiamine HCl (Vitamin B1) 100 mg DAILY ORAL 06/16/17 12:30 07/16/17 12:29 06/16/17 12:40 Zidovudine (Retrovir) 300 mg Q12HR ORAL 06/16/17 09:00 07/16/17 08:59 06/16/17 09:05 Assessment/Plan Assessment/Plan ASSESSMENT acute ETOH intoxication with withdrawal acute toxic encephalopathy 2 to acute alcohol intoxication ETOH dependency seizure disorder exacerbation ( due to noncompliance and ETOH abuse) noncompliance HTN anemia homeless PLAN OF CARE banana bag Librium prn for withdrawal Ativan prn seizure seizure precautions neuro follows resume Keppra and Dilantin, check levels BP management with ARLEY, optimize as needed DVT , GI prophylaxis monitor HH, if trend down, will initiate anemia w/up SW for placement residential child care counselor on abstinence from ETOH case discussed and evaluated by supervising physician Mando Hutchison)Rosa NP Jun 16, 2017 17:32
[2017-06-16] MEDS ORDERED: chlordiazePOXIDE 25mg Cap ORAL PRN (17:45)
[2017-06-16] MEDS ORDERED: Thiamine 100mg IVPB (Q24H) IVPB SCH ×2 (20:00)
[2017-06-16] MEDS ORDERED: Folic Acid 1 MG, Magnesium Sulfate 2,000 MG, Multivitamin - 12 Injection 10 ML in NS w/... IV SCH (20:00)
[2017-06-16] MEDS: Heparin 5000 units/ml inj SUBQ SCH (20:34)
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
[2017-06-17 04:00] VITALS: BP 103/70
[2017-06-17 08:00] VITALS: BP 142/80
[2017-06-17] MEDS: Heparin 5000 units/ml inj SUBQ SCH ×3 (09:00→21:00)
[2017-06-17] MEDS: Isentress 400mg tab ORAL SCH ×2 (09:40→20:07)
[2017-06-17] MEDS: Lisinopril 20mg tab ORAL SCH ×2 (09:40→17:25)
[2017-06-17] MEDS: Zidovudine 100mg cap ORAL SCH ×2 (09:41→21:33)
[2017-06-17 12:00] VITALS: BP 142/84
--- NOTE | 2017-06-17 12:19 | Pulmonology Progress Note ---
Assessment/Plan Assessment/Plan ASSESSMENT acute ETOH intoxication with withdrawal acute toxic encephalopathy 2 to acute alcohol intoxication ETOH dependency seizure disorder exacerbation ( due to noncompliance and ETOH abuse) noncompliance HTN anemia homeless PLAN OF CARE banana bag Librium prn for withdrawal Ativan prn seizure seizure precautions neuro follows continue Keppra and Dilantin, check levels- per neuro BP management with ARLEY, optimize as needed DVT , GI prophylaxis monitor HH, if trend down, will initiate anemia w/up SW for placement senior counsel on abstinence from ETOH transfer to [facility] floor case discussed and evaluated by supervising physician Subjective Allergies: Coded Allergies: CHLORPROMAZINE (Unverified Allergy, Unknown, 02/04/16) Subjective no further seizures denies chest pain, SOB Objective Last 24 Hour Vital Signs Date Time Temp Pulse Resp B/P (MAP) Pulse Ox O2 Delivery O2 Flow Rate FiO2 06/17/17 09:40 103/70 06/17/17 08:00 98.1 88 19 142/80 98 Room Air 06/17/17 08:00 90 06/17/17 04:00 87 06/17/17 04:00 97.9 97 20 103/70 97 Room Air 06/17/17 00:00 103 06/16/17 23:55 99.0 86 18 144/87 95 Room Air 06/16/17 21:30 98.9 06/16/17 20:00 102 06/16/17 20:00 100.0 103 20 151/97 97 Room Air 06/16/17 17:26 150/90 06/16/17 16:00 99.1 94 21 150/90 95 Room Air 06/16/17 15:29 96 Objective General Appearance: no apparent distress, alert Lines, tubes and drains: peripheral HEENT: normocephalic, atraumatic, anicteric Neck: non-tender, supple Respiratory/Chest: lungs clear, no respiratory distress, no accessory muscle use Cardiovascular/Chest: normal rate, regular rhythm, no JVD Abdomen: normal bowel sounds, non tender, soft Extremities: normal range of motion, no calf tenderness Skin Exam: warm/dry Neurologic: no motor/sensory deficits, alert, responsive Musculoskeletal: normal muscle bulk Current Medications Medications (Trade) Dose Ordered Sig/Pauline Route PRN Reason Start Time Stop Time Status Last Admin Dose Admin Chlordiazepoxide (Librium) 25 mg Q6H PRN ORAL Agitation 06/16/17 17:45 06/23/17 17:44 Emtricitabine/ Tenofovir (Truvada 200/ 300mg) 1 tab DAILY ORAL 06/16/17 09:00 07/16/17 08:59 06/17/17 09:40 Folic Acid 1 mg/ Magnesium Sulfate 2000 mg/ Multivitamins 10 ml/Sodium Chloride 1,014.2 ml @ 125 mls/ hr Q24H IV 06/16/17 20:00 07/16/17 19:59 06/16/17 20:51 Heparin Sodium (Porcine) (Heparin 5000 units/ml) 5,000 units EVERY 12 HOURS SUBQ 06/16/17 21:00 07/16/17 20:59 06/16/17 20:34 Levetiracetam (Keppra) 750 mg BID ORAL 06/16/17 09:00 07/16/17 08:59 06/17/17 09:39 Levetiracetam (Keppra) 750 mg ONCE ORAL 06/16/17 04:45 07/16/17 04:44 06/17/17 04:13 Lisinopril (Prinivil) 20 mg BID ORAL 06/16/17 09:00 07/16/17 08:59 06/17/17 09:40 Lorazepam (Ativan 2mg/ml 1ml) 1 mg Q1HR PRN IV For Seizures 06/16/17 04:00 06/23/17 03:59 Lorazepam (Ativan 2mg/ml 1ml) 2 mg Q1H PRN IV For Anxiety 06/16/17 17:45 06/23/17 17:44 Phenytoin (Dilantin) 300 mg BEDTIME ORAL 06/16/17 21:00 07/16/17 20:59 06/16/17 20:33 Raltegravir (Isentress) 400 mg Q12HR ORAL 06/16/17 09:00 07/16/17 08:59 06/17/17 09:40 Ranitidine HCl (Zantac) 150 mg BEDTIME ORAL 06/16/17 21:00 07/16/17 20:59 06/16/17 20:33 Ritonavir (Norvir) 100 mg DAILY ORAL 06/16/17 09:00 07/16/17 08:59 06/16/17 20:33 Thiamine HCl 100 mg/Dextrose 56 ml @ 112 mls/hr Q24H IVPB 06/16/17 20:00 07/16/17 19:59 06/16/17 20:50 Zidovudine (Retrovir) 300 mg Q12HR ORAL 06/16/17 09:00 07/16/17 08:59 06/17/17 09:41 Mando ([facility])Rosa NP Jun 17, 2017 12:19
[2017-06-17] MEDS ORDERED: LORazepam Inj 2mg/ml 1ml IV PRN ×2 (15:45→16:00)
[2017-06-17 16:00] VITALS: BP 134/70
[2017-06-17 17:08] VITALS: BP 118/91
[2017-06-17] MEDS ORDERED: chlordiazePOXIDE 25mg Cap ORAL PRN (17:45)
[2017-06-17 20:00] VITALS: BP 140/89
[2017-06-17] MEDS ORDERED: Folic Acid 1 MG, Magnesium Sulfate 2,000 MG, Multivitamin - 12 Injection 10 ML in NS w/... IV SCH (20:00)
[2017-06-17] MEDS ORDERED: Thiamine HCl 100 MG in D5W 55 ML IVPB SCH (20:00)
[2017-06-17] MEDS: Phenytoin 100mg cap ORAL SCH (20:06)
--- NOTE | 2017-06-17 20:48 | General Progress Note ---
Assessment/Plan Problem List: (1) Acute toxic metabolic encephalopathy (2) Alcohol withdrawal ICD Codes: F10.239 - Alcohol dependence with withdrawal, unspecified SNOMED: 971848514 (3) Seizure disorder ICD Codes: G40.909 - Epilepsy, unspecified, not intractable,without status epilepticus SNOMED: 591885499 (4) HIV disease ICD Codes: B20 - Human immunodeficiency virus [HIV] disease SNOMED: 36333025 (5) Medical non-compliance ICD Codes: Z91.19 - Patient's noncompliance with other medical treatment and regimen SNOMED: 020749498 (6) Depression ICD Codes: F32.9 - Major depressive disorder, single episode, unspecified SNOMED: 94771947 (7) Homeless ICD Codes: Z59.0 - Homelessness SNOMED: 69803307 Status: stable Assessment/Plan Neurology consulted Resume AEDs--keppra and dilantin, f/u levels Seizure precautions Banana bag Monitor for withdrawal F/u CD4 count and HIV PCR Cont HAART F/u BLE venous duplex HSQ for DVT ppx SW consult given homelessness and substance abuse FULL CODE D/w pt, RN, neuro regarding mgmt and dispo Subjective Date patient seen: Jun 17, 2017 Time patient seen: 13:00 ROS Limited/Unobtainable: No Constitutional: Reports: no symptoms HEENT: Reports: no symptoms Cardiovascular: Reports: no symptoms Respiratory: Reports: no symptoms Gastrointestinal/Abdominal: Reports: no symptoms Genitourinary: Reports: no symptoms Neurologic/Psychiatric: Reports: no symptoms Endocrine: Reports: no symptoms Hematologic/Lymphatic: Reports: no symptoms Allergies: Coded Allergies: CHLORPROMAZINE (Unverified Allergy, Unknown, 02/04/16) Subjective No acute o/n events No further seizures now that he is back on his AEDs Pt doing well. Denies f/c, n/v, d/c, chest pain, SOB Objective Last 24 Hour Vital Signs Date Time Temp Pulse Resp B/P (MAP) Pulse Ox O2 Delivery O2 Flow Rate FiO2 06/17/17 20:00 98.6 86 20 140/89 97 Room Air 06/17/17 17:25 118/91 06/17/17 17:08 98.1 85 18 118/91 98 06/17/17 16:00 98.1 110 19 134/70 88 Room Air 06/17/17 12:00 98.8 75 19 142/84 97 Room Air 06/17/17 09:40 103/70 06/17/17 08:00 98.1 88 19 142/80 98 Room Air 06/17/17 08:00 90 06/17/17 04:00 87 06/17/17 04:00 97.9 97 20 103/70 97 Room Air 06/17/17 00:00 103 06/16/17 23:55 99.0 86 18 144/87 95 Room Air 06/16/17 21:30 98.9 Intake and Output 06/17/17 06/18/17 19:00 07:00 Intake Total 650 ml Output Total 350 ml Balance 300 ml Intake Oral 650 ml Output Urine Total 350 ml # Voids 2 # Bowel Movements 5 Height (Feet): 6 Height (Inches): 4.00 Weight (Pounds): 195 Objective General: alert, cooperative, no distress, appears stated age Head: normocephalic, without obvious abnormality, atraumatic Eyes: conjunctivae/corneas clear. PERRL, EOM's intact Throat: lips, mucosa, and tongue normal. MMM Neck: supple, symmetrical, trachea midline, and no JVD Lungs: clear to auscultation bilaterally Heart: regular rate and rhythm, S1, S2 normal, no murmur, click, rub or gallop Abdomen: soft, non-tender, non-distended, bowel sounds normal; no masses or organomegaly Extremities: extremities normal, atraumatic, no cyanosis or edema Pulses: 2+ and symmetric Skin: skin color, texture, turgor normal; no rashes or lesions Neurologic: grossly normal, no focal deficits Kevin Alegria M.D. Jun 17, 2017 20:48
[2017-06-18] VITALS: BP 129/75
[2017-06-18 04:00] VITALS: BP 130/80
[2017-06-18 08:00] VITALS: BP 131/79
[2017-06-18] MEDS: Heparin 5000 units/ml inj SUBQ SCH ×2 (08:14→21:00)
[2017-06-18] MEDS: Zidovudine 100mg cap ORAL SCH ×2 (08:55→20:54)
[2017-06-18] MEDS: Lisinopril 20mg tab ORAL SCH ×2 (08:55→17:25)
[2017-06-18] MEDS: Isentress 400mg tab ORAL SCH ×2 (08:56→20:54)
[2017-06-18] MEDS: Ritonavir 100mg tab ORAL SCH (08:57)
--- NOTE | 2017-06-18 10:40 | Pulmonology Progress Note ---
Assessment/Plan Assessment/Plan ASSESSMENT acute ETOH intoxication with withdrawal acute toxic encephalopathy 2 to acute alcohol intoxication ETOH dependency seizure disorder exacerbation ( due to noncompliance and ETOH abuse) noncompliance HTN anemia homeless PLAN OF CARE dc banana bag today oral thiamine and folic acid check mg level in am Librium prn for withdrawal Ativan prn seizure seizure precautions neuro follows continue Keppra and Dilantin, check levels- per neuro BP management with ARLEY, optimize as needed DVT , GI prophylaxis monitor HH, if trend down, will initiate anemia w/up for placement 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 on abstinence from ETOH T cell subset pending dietary eval , allow double portions case discussed and evaluated by supervising physician Subjective Allergies: Coded Allergies: CHLORPROMAZINE (Unverified Allergy, Unknown, 02/04/16) Subjective no further seizures denies chest pain, SOB hungry, wants to eat double portion Objective Last 24 Hour Vital Signs Date Time Temp Pulse Resp B/P (MAP) Pulse Ox O2 Delivery O2 Flow Rate FiO2 06/18/17 08:55 131/79 06/18/17 08:00 97.5 76 16 131/79 97 Room Air 06/18/17 04:00 97.9 82 20 130/80 98 Room Air 06/18/17 00:00 97.9 89 20 129/75 96 Room Air 06/17/17 20:00 98.6 86 20 140/89 97 Room Air 06/17/17 17:25 118/91 06/17/17 17:08 98.1 85 18 118/91 98 06/17/17 16:00 98.1 110 19 134/70 88 Room Air 06/17/17 12:00 98.8 75 19 142/84 97 Room Air Objective General Appearance: no apparent distress, alert Lines, tubes and drains: peripheral HEENT: normocephalic, atraumatic, anicteric Neck: non-tender, supple Respiratory/Chest: lungs clear, no respiratory distress, no accessory muscle use Cardiovascular/Chest: normal rate, regular rhythm, no JVD Abdomen: normal bowel sounds, non tender, soft Extremities: normal range of motion, no calf tenderness Skin Exam: warm/dry Neurologic: no motor/sensory deficits, alert, responsive Musculoskeletal: normal muscle bulk Microbiology Date/Time Source Procedure Growth Status 06/16/17 01:00 Nasal Nares MRSA Culture - Final NO METHICILLIN RESISTANT STAPH AUREUS... Complete 06/17/17 14:23 Stool Clostridium difficile Toxin Assay - Final Complete 06/16/17 01:00 Rectum VRE Culture - Final NO VANCOMYCIN RESISTANT ENTEROCOCCUS ... Complete Current Medications Medications (Trade) Dose Ordered Sig/Pauline Route PRN Reason Start Time Stop Time Status Last Admin Dose Admin Chlordiazepoxide (Librium) 25 mg Q6H PRN ORAL Agitation 06/17/17 17:45 06/23/17 17:44 Emtricitabine/ Tenofovir (Truvada 200/ 300mg) 1 tab DAILY ORAL 06/18/17 09:00 07/16/17 08:59 06/18/17 08:56 Folic Acid 1 mg/ Magnesium Sulfate 2000 mg/ Multivitamins 10 ml/Sodium Chloride 1,014.2 ml @ 125 mls/ hr Q24H IV 06/17/17 20:00 07/16/17 19:59 06/17/17 20:04 Heparin Sodium (Porcine) (Heparin 5000 units/ml) 5,000 units EVERY 12 HOURS SUBQ 06/17/17 21:00 07/16/17 20:59 Levetiracetam (Keppra) 750 mg BID ORAL 06/17/17 18:00 07/16/17 08:59 06/18/17 08:56 Lisinopril (Prinivil) 20 mg BID ORAL 06/17/17 18:00 07/16/17 08:59 06/18/17 08:55 Lorazepam (Ativan 2mg/ml 1ml) 1 mg Q1HR PRN IV For Seizures 06/17/17 16:00 06/23/17 03:59 Lorazepam (Ativan 2mg/ml 1ml) 2 mg Q1H PRN IV For Anxiety 06/17/17 15:45 06/23/17 17:44 Phenytoin (Dilantin) 300 mg BEDTIME ORAL 06/17/17 21:00 07/16/17 20:59 06/17/17 20:06 Raltegravir (Isentress) 400 mg Q12HR ORAL 06/17/17 21:00 07/16/17 08:59 06/18/17 08:56 Ranitidine HCl (Zantac) 150 mg BEDTIME ORAL 06/17/17 21:00 07/16/17 20:59 06/17/17 20:06 Ritonavir (Norvir) 100 mg DAILY ORAL 06/18/17 09:00 07/16/17 08:59 06/18/17 08:57 Thiamine HCl 100 mg/Dextrose 56 ml @ 112 mls/hr Q24H IVPB 06/17/17 20:00 07/16/17 19:59 06/17/17 20:02 Zidovudine (Retrovir) 300 mg Q12HR ORAL 06/17/17 21:00 07/16/17 08:59 06/18/17 08:55 [facility] ([facility])Rosa NP Jun 18, 2017 10:40
[2017-06-18 12:00] VITALS: BP 129/72
[2017-06-18 16:00] VITALS: BP 138/88
[2017-06-18 20:00] VITALS: BP 140/90
[2017-06-18] MEDS: Phenytoin 100mg cap ORAL SCH (20:54)
[2017-06-19] VITALS: BP 128/71
[2017-06-19 04:00] VITALS: BP 136/82
[2017-06-19 08:00] VITALS: BP 113/75
[2017-06-19] MEDS: Isentress 400mg tab ORAL SCH ×2 (08:06→20:44)
[2017-06-19] MEDS: Thiamine 100mg tab ORAL SCH (08:07)
[2017-06-19] MEDS: Zidovudine 100mg cap ORAL SCH ×2 (08:07→20:43)
[2017-06-19] MEDS: Ritonavir 100mg tab ORAL SCH (08:08)
[2017-06-19] MEDS: Heparin 5000 units/ml inj SUBQ SCH ×2 (08:12→21:00)
[2017-06-19] MEDS: Lisinopril 20mg tab ORAL SCH ×2 (08:12→17:18)
[2017-06-19 12:00] VITALS: BP 129/80
--- NOTE | 2017-06-19 12:10 | Pulmonology Progress Note ---
Assessment/Plan Assessment/Plan ASSESSMENT acute ETOH intoxication with withdrawal acute toxic encephalopathy 2 to acute alcohol intoxication ETOH dependency seizure disorder exacerbation ( due to noncompliance and ETOH abuse) noncompliance HTN anemia homeless PLAN OF CARE dc banana bag today oral thiamine and folic acid check Mg level Librium prn Ativan prn seizure precautions neuro follows continue Keppra and Dilantin, BP management with ARLEY, optimize as needed DVT , GI prophylaxis monitor HH, if trend down, will initiate anemia w/up investment counselor on abstinence from ETOH T cell subset pending dietary eval , allow double portions ready for dc SW for placement case discussed and evaluated by supervising physician Subjective Allergies: Coded Allergies: CHLORPROMAZINE (Unverified Allergy, Unknown, 02/04/16) Subjective no further seizures denies chest pain, SOB Objective Last 24 Hour Vital Signs Date Time Temp Pulse Resp B/P (MAP) Pulse Ox O2 Delivery O2 Flow Rate FiO2 06/19/17 08:12 113/75 06/19/17 08:00 97.3 89 15 113/75 98 Room Air 06/19/17 04:00 97.9 80 22 136/82 98 Room Air 06/19/17 00:00 98.2 85 20 128/71 98 Room Air 06/18/17 20:00 98.8 86 20 140/90 98 Room Air 06/18/17 17:25 129/72 06/18/17 16:00 98.4 91 16 138/88 96 Room Air Objective General Appearance: no apparent distress, alert Lines, tubes and drains: peripheral HEENT: normocephalic, atraumatic, anicteric Neck: non-tender, supple Respiratory/Chest: lungs clear, no respiratory distress, no accessory muscle use Cardiovascular/Chest: normal rate, regular rhythm, no JVD Abdomen: normal bowel sounds, non tender, soft Extremities: normal range of motion, no calf tenderness Skin Exam: warm/dry Neurologic: no motor/sensory deficits, alert, responsive Musculoskeletal: normal muscle bulk Microbiology Date/Time Source Procedure Growth Status 06/17/17 14:23 Stool Clostridium difficile Toxin Assay - Final Complete Current Medications Medications (Trade) Dose Ordered Sig/Pauline Route PRN Reason Start Time Stop Time Status Last Admin Dose Admin Acetaminophen/ Hydrocodone Bitart ([place] 5/325) 1 tab Q6H PRN ORAL For Pain 06/19/17 12:15 06/26/17 12:14 UNV Chlordiazepoxide (Librium) 25 mg Q6H PRN ORAL Agitation 06/17/17 17:45 06/23/17 17:44 Emtricitabine/ Tenofovir (Truvada 200/ 300mg) 1 tab DAILY ORAL 06/18/17 09:00 07/16/17 08:59 06/19/17 08:07 Folic Acid (Folate) 1 mg DAILY ORAL 06/19/17 09:00 07/19/17 08:59 06/19/17 08:07 Heparin Sodium (Porcine) (Heparin 5000 units/ml) 5,000 units EVERY 12 HOURS SUBQ 06/17/17 21:00 07/16/17 20:59 Levetiracetam (Keppra) 750 mg BID ORAL 06/17/17 18:00 07/16/17 08:59 06/19/17 08:07 Lisinopril (Prinivil) 20 mg BID ORAL 06/17/17 18:00 07/16/17 08:59 06/18/17 17:25 Lorazepam (Ativan 2mg/ml 1ml) 1 mg Q1HR PRN IV For Seizures 06/17/17 16:00 06/23/17 03:59 Lorazepam (Ativan 2mg/ml 1ml) 2 mg Q1H PRN IV For Anxiety 06/17/17 15:45 06/23/17 17:44 Phenytoin (Dilantin) 300 mg BEDTIME ORAL 06/17/17 21:00 07/16/17 20:59 06/18/17 20:54 Raltegravir (Isentress) 400 mg Q12HR ORAL 06/17/17 21:00 07/16/17 08:59 06/19/17 08:06 Ranitidine HCl (Zantac) 150 mg BEDTIME ORAL 06/17/17 21:00 07/16/17 20:59 06/18/17 20:54 Ritonavir (Norvir) 100 mg DAILY ORAL 06/18/17 09:00 07/16/17 08:59 06/19/17 08:08 Thiamine HCl (Vitamin B1) 100 mg DAILY ORAL 06/19/17 09:00 07/19/17 08:59 06/19/17 08:07 Zidovudine (Retrovir) 300 mg Q12HR ORAL 06/17/17 21:00 10/21/17 08:59 06/19/17 08:07 [facility] ([facility])Rosa NP Jun 19, 2017 12:10
[2017-06-19] MEDS ORDERED: Norco 5mg/325mg tab ORAL PRN (12:15)
[2017-06-19 20:00] VITALS: BP 149/96
[2017-06-19] MEDS: Phenytoin 100mg cap ORAL SCH (20:44)
[2017-06-20] VITALS: BP 133/88
[2017-06-20 04:00] VITALS: BP 128/84
[2017-06-20 08:00] VITALS: BP 120/69
[2017-06-20] MEDS: Heparin 5000 units/ml inj SUBQ SCH ×2 (09:00→20:10)
[2017-06-20] MEDS: Ritonavir 100mg tab ORAL SCH (09:20)
[2017-06-20] MEDS: Zidovudine 100mg cap ORAL SCH ×2 (09:21→19:56)
[2017-06-20] MEDS: Thiamine 100mg tab ORAL SCH (09:21)
[2017-06-20] MEDS: Isentress 400mg tab ORAL SCH ×2 (09:21→19:56)
[2017-06-20] MEDS: Lisinopril 20mg tab ORAL SCH ×2 (09:21→17:56)
--- NOTE | 2017-06-20 09:51 | Wound Care Consultation ---
Wound Assessment Wound Assessment #1: Wound Number: 1 Wound Present on Admission: Yes New Wound: No Status Change of Wound: No Wound Location Body Site Modif: left, posterior Wound Location Body Site: shoulder - extending to posterior neck scattered Wound Type: rash Lida Test: Does not Lida Description: Localized Percent of Wound [place]/Red: 100 Wound Drainage Amount: None Wound Drainage Odor: None/Absent Tissue Surrounding Wound: Erythemic Wound General Appearance: Reddened Wound Assessment #2: Wound Number: 1 Wound Present on Admission: Yes New Wound: No Status Change of Wound: No Wound Location Body Site Modif: anterior Wound Location Body Site: other - neck Wound Type: scab - scattered scabs Lida Test: Does not Lida Wound Thickness: Partial Thickness Percent of Wound Black/Brown: 100 - scattered scabs Wound Drainage Amount: None Wound Drainage Odor: None/Absent Tissue Surrounding Wound: Erythemic Wound General Appearance: Reddened Wound Comment #1 left posterior shoulder extending to posterior neck scattered rash. #2 anterior neck scattered scabs. Recommendation -Follow up with MD regarding rash. -keep anterior neck scabs clean and dry. -Optimize nutrition. -Turn and reposition. -Assess and notify MD for any further changes in skin noted. ELOY STRANGE Jun 20, 2017 09:51
[2017-06-20] MEDS ORDERED: DiphenhydrAMINE & Zinc 28g Cream TOPIC PRN ×2 (11:45)
[2017-06-20 12:00] VITALS: BP 139/88
--- NOTE | 2017-06-20 12:52 | Diagnostic Imaging Report ---
APPROVED REPORT CPT Code: 67356 Present Symptoms Lower Extremity Pain: Bilateral BILATERAL: Imaging reveals a patent deep venous system bilaterally. There is no evidence of thrombus within the femoral, popliteal or tibial segments. The greater saphenous veins are also within normal limits. Doppler indicates normal spontaneous flow within these segments.
--- NOTE | 2017-06-20 15:30 | Pulmonology Progress Note ---
Assessment/Plan Problems: (1) Acute toxic metabolic encephalopathy (2) Alcohol withdrawal (3) HIV disease (4) Hypertension (5) Seizure disorder (6) Homeless Assessment/Plan doing better pt/ot no more seizures continue current meds Subjective ROS Limited/Unobtainable: No Constitutional: Reports: no symptoms HEENT: Repors: no symptoms Respiratory: Reports: no symptoms Allergies: Coded Allergies: CHLORPROMAZINE (Unverified Allergy, Unknown, 02/04/16) Objective Last 24 Hour Vital Signs Date Time Temp Pulse Resp B/P (MAP) Pulse Ox O2 Delivery O2 Flow Rate FiO2 06/20/17 12:00 98.6 73 18 139/88 98 Room Air 06/20/17 09:21 120/69 06/20/17 08:00 98.2 72 18 120/69 100 Room Air 06/20/17 04:00 97.9 76 16 128/84 98 Room Air 06/20/17 00:00 98.0 75 16 133/88 98 Room Air 06/19/17 20:00 98.2 79 17 149/96 99 Room Air 06/19/17 17:18 129/80 General Appearance: WD/WN HEENT: normocephalic, mucous membranes moist Respiratory/Chest: chest wall non-tender, lungs clear Cardiovascular: normal rate Abdomen: soft, non tender Extremities: no cyanosis, no clubbing Current Medications Medications (Trade) Dose Ordered Sig/Pauline Route PRN Reason Start Time Stop Time Status Last Admin Dose Admin Acetaminophen/ Hydrocodone Bitart ([place] 5/325) 1 tab Q6H PRN ORAL For Pain 06/19/17 12:15 06/26/17 12:14 Chlordiazepoxide (Librium) 25 mg Q6H PRN ORAL Agitation 06/17/17 17:45 06/23/17 17:44 Diphenhydramine HCl (Benadryl Cream) 1 applic BIDPRN PRN TOPIC Itching 06/20/17 11:45 07/20/17 11:44 Emtricitabine/ Tenofovir (Truvada 200/ 300mg) 1 tab DAILY ORAL 06/18/17 09:00 07/16/17 08:59 06/20/17 09:21 Folic Acid (Folate) 1 mg DAILY ORAL 06/19/17 09:00 07/19/17 08:59 06/20/17 09:21 Heparin Sodium (Porcine) (Heparin 5000 units/ml) 5,000 units EVERY 12 HOURS SUBQ 06/17/17 21:00 07/16/17 20:59 Levetiracetam (Keppra) 750 mg BID ORAL 06/17/17 18:00 07/16/17 08:59 06/20/17 09:21 Lisinopril (Prinivil) 20 mg BID ORAL 06/17/17 18:00 07/16/17 08:59 06/20/17 09:21 Lorazepam (Ativan 2mg/ml 1ml) 1 mg Q1HR PRN IV For Seizures 06/17/17 16:00 06/23/17 03:59 Lorazepam (Ativan 2mg/ml 1ml) 2 mg Q1H PRN IV For Anxiety 06/17/17 15:45 06/23/17 17:44 Phenytoin (Dilantin) 300 mg BEDTIME ORAL 06/17/17 21:00 07/16/17 20:59 06/19/17 20:44 Raltegravir (Isentress) 400 mg Q12HR ORAL 06/17/17 21:00 07/16/17 08:59 06/20/17 09:21 Ranitidine HCl (Zantac) 150 mg BEDTIME ORAL 06/17/17 21:00 07/16/17 20:59 06/19/17 20:44 Ritonavir (Norvir) 100 mg DAILY ORAL 06/18/17 09:00 07/16/17 08:59 06/20/17 09:20 Thiamine HCl (Vitamin B1) 100 mg DAILY ORAL 06/19/17 09:00 07/19/17 08:59 06/20/17 09:21 Zidovudine (Retrovir) 300 mg Q12HR ORAL 06/17/17 21:00 07/16/17 08:59 06/20/17 09:21 MITCH SAUCEDO Jun 20, 2017 15:30
[2017-06-20 16:00] VITALS: BP 114/70
[2017-06-20] MEDS: Phenytoin 100mg cap ORAL SCH (19:56)
[2017-06-20 20:00] VITALS: BP 133/81
[2017-06-21] VITALS: BP 131/81
[2017-06-21 04:04] VITALS: BP 115/85
[2017-06-21 07:43] VITALS: BP 128/69
[2017-06-21] MEDS: Ritonavir 100mg tab ORAL SCH (08:51)
[2017-06-21] MEDS: Zidovudine 100mg cap ORAL SCH (08:52)
[2017-06-21] MEDS: Isentress 400mg tab ORAL SCH (08:52)
[2017-06-21] MEDS: Thiamine 100mg tab ORAL SCH (08:53)
[2017-06-21] MEDS: Lisinopril 20mg tab ORAL SCH (08:53)
[2017-06-21] MEDS: Heparin 5000 units/ml inj SUBQ SCH (09:00)
[2017-06-21 11:51] VITALS: BP 130/72
--- NOTE | 2017-06-21 21:52 | Pulmonology Progress Note ---
Assessment/Plan Problems: (1) Acute toxic metabolic encephalopathy (2) Alcohol withdrawal (3) HIV disease (4) Hypertension (5) Seizure disorder (6) Homeless Assessment/Plan doing better pt/ot no more seizures continue current meds awaiting placement Subjective ROS Limited/Unobtainable: No Constitutional: Reports: no symptoms HEENT: Repors: no symptoms Respiratory: Reports: no symptoms Allergies: Coded Allergies: CHLORPROMAZINE (Unverified Allergy, Unknown, 02/04/16) Objective Last 24 Hour Vital Signs Date Time Temp Pulse Resp B/P (MAP) Pulse Ox O2 Delivery O2 Flow Rate FiO2 06/21/17 11:51 98.4 82 20 130/72 97 Room Air 06/21/17 08:53 128/69 06/21/17 07:43 98.2 74 20 128/69 100 Room Air 06/21/17 04:04 98.7 82 21 115/85 96 Room Air 06/21/17 00:00 98.8 80 21 131/81 98 Room Air Intake and Output 06/21/17 06/22/17 19:00 07:00 Intake Total 340 ml Output Total 600 ml Balance -260 ml Intake Oral 340 ml Output Urine Total 600 ml # Voids 1 General Appearance: WD/WN HEENT: normocephalic, atraumatic Respiratory/Chest: chest wall non-tender, lungs clear Cardiovascular: normal peripheral pulses, normal rate Abdomen: normal bowel sounds, soft, non tender Genitourinary: normal external genitalia Extremities: no cyanosis Skin: no rash 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
--- NOTE | 2017-06-23 10:33 | Discharge Summary ---
Discharge Summary Hospital Course Date of Admission Jun 16, 2017 at 01:09 Date of Discharge Jun 21, 2017 at 16:00 Admitting Diagnosis seizure HPI Ricardo Lindquist is a 61 year old male who was admitted on Jun 16, 2017 at 01:09 for Seizure Hospital Course [id number] Discharge Discharge Disposition Patient left AMA Discharge Diagnoses: Lucy Santos NP Jun 23, 2017 10:33
--- NOTE | 2017-06-24 06:15 | Discharge Summary 2 SIG ---
DATE OF ADMISSION: 06/16/2017 DATE OF DISCHARGE: 06/21/2017 Brief Hospital Course: The patient is a 61-year-old male with history of HIV with unknown CD4 count and is noncompliant with HAART, history of seizures, noncompliant with medications, presented to ED after a seizure event. Per EMS, the patient was found on the street. EMS arrived. The patient was awake, alert, and intoxicated. He is a poor historian and was off of his medications for about a month. He is currently homeless and lives in a alf. On evaluation at ED, CAT scan of the head showed chronic age-related changes, negative for acute intracranial bleed or mass effect. Cervical CT showed no acute bony trauma with degenerative changes. Chest x-ray showed no acute process. EKG done was in normal sinus rhythm and toxicology showed alcohol level 263 and Dilantin was less than 0.8. He was loaded with Dilantin and was given Keppra. He was eventually admitted to telemetry for seizure disorder. He was placed on seizure precautions and was resumed on Dilantin and Keppra. He underwent neurological evaluation and was restarted on Dilantin 300 mg at bedtime in addition to Keppra 1000 mg b.i.d. He was given banana bag, Librium, and Ativan p.r.n for alcohol withdrawal symptoms. There have been no further seizure activities. He came in with rashes on the left posterior shoulder extending to posterior neck and scattered scabs on the neck. He was given wound care. He underwent physical therapy and occupational therapy and was referred for placement, however, the patient could not wait and signed out against medical advice. FINAL DIAGNOSES: 1. Acute toxic metabolic encephalopathy. 2. Alcohol withdrawal. 3. Human immunodeficiency virus disease. Continued on Truvada 200 mg/300 mg, Norvir 100 mg, Isentress 400 mg b.i.d., and Retrovir 300 mg b.i.d. 4. Acute ethanol intoxication and withdrawal. 5. Seizure disorder with acute exacerbation secondary to noncompliance and EtOH use. 6. Noncompliance. 7. Hypertension. 8. Anemia. 9. Homelessness. 10. Depression. 11. Medical noncompliance. 12. Left posterior shoulder extending to the posterior neck scattered rash and scattered scabs present on admission. DISCHARGE DISPOSITION: The patient left AMA. Carolyn Streeter M.D. I have been assigned to dictate discharge summary on this account and I was not involved in the patient's management. Lucy Santos N.P. DR: RADHA JOB#: [id number] CC: IDANIA
--- NOTE | 2017-06-28 22:14 | General Progress Note ---
Assessment/Plan Problem List: (1) Acute toxic metabolic encephalopathy (2) Alcohol withdrawal ICD Codes: F10.239 - Alcohol dependence with withdrawal, unspecified SNOMED: 926918935 (3) Seizure disorder ICD Codes: G40.909 - Epilepsy, unspecified, not intractable,without status epilepticus SNOMED: 178413649 (4) HIV disease ICD Codes: B20 - Human immunodeficiency virus [HIV] disease SNOMED: 14418411 (5) Medical non-compliance ICD Codes: Z91.19 - Patient's noncompliance with other medical treatment and regimen SNOMED: 701119853 (6) Depression ICD Codes: F32.9 - Major depressive disorder, single episode, unspecified SNOMED: 54930966 (7) Homeless ICD Codes: Z59.0 - Homelessness SNOMED: 81962073 Status: stable Assessment/Plan Neurology consulted Resume AEDs--keppra and dilantin, f/u levels Seizure precautions Banana bag Monitor for withdrawal F/u CD4 count and HIV PCR Cont HAART F/u BLE venous duplex HSQ for DVT ppx SW consult given homelessness and substance abuse PT/OT eval FULL CODE D/w pt, RN, neuro regarding mgmt and dispo Subjective Date patient seen: Jun 18, 2017 Time patient seen: 11:00 ROS Limited/Unobtainable: No Constitutional: Reports: weakness HEENT: Reports: no symptoms Cardiovascular: Reports: no symptoms Respiratory: Reports: no symptoms Gastrointestinal/Abdominal: Reports: no symptoms Genitourinary: Reports: no symptoms Neurologic/Psychiatric: Reports: no symptoms Endocrine: Reports: no symptoms Hematologic/Lymphatic: Reports: no symptoms Allergies: Coded Allergies: CHLORPROMAZINE (Unverified Allergy, Unknown, 02/04/16) Subjective No acute o/n events No further seizures now that he is back on his AEDs Pt doing well. Denies f/c, n/v, d/c, chest pain, SOB Objective Height (Feet): 6 Height (Inches): 4.00 Weight (Pounds): 195 Objective General: alert, cooperative, no distress, appears stated age Head: normocephalic, without obvious abnormality, atraumatic Eyes: conjunctivae/corneas clear. PERRL, EOM's intact Throat: lips, mucosa, and tongue normal. MMM Neck: supple, symmetrical, trachea midline, and no JVD Lungs: clear to auscultation bilaterally Heart: regular rate and rhythm, S1, S2 normal, no murmur, click, rub or gallop Abdomen: soft, non-tender, non-distended, bowel sounds normal; no masses or organomegaly Extremities: extremities normal, atraumatic, no cyanosis or edema Pulses: 2+ and symmetric Skin: skin color, texture, turgor normal; no rashes or lesions Neurologic: grossly normal, no focal deficits Kevin Alegria M.D. Jun 28, 2017 22:14
== END 2017-06-21 16:00 | disposition left against medical advice (07) | DRG 100 ==
LOC: EDBD 21:01 → EMR 21:55 → 2E 06-16 01:09 → EDBEDREQ 06-16 01:11 → 2E 06-16 03:24 → 4E 06-17 15:35
DX: G40.909 Epilepsy, unspecified, not intractable, without status epilepticus (principal); G92 Toxic encephalopathy; B20 Human immunodeficiency virus [HIV] disease; F10.239 Alcohol dependence with withdrawal, unspecified; Z91.14 Patient's other noncompliance with medication regimen; F10.229 Alcohol dependence with intoxication, unspecified; I10 Essential (primary) hypertension; D64.9 Anemia, unspecified; Z59.0 Homelessness; Z88.8 Allergy status to other drugs, medicaments and biological substances; F32.9 Major depressive disorder, single episode, unspecified; R21 Rash and other nonspecific skin eruption; Z87.820 Personal history of traumatic brain injury
CPT/HCPCS: 36415; 70450; 71010; 72125; 80053; 80185; 80299; 80300; 80329; 81003; 82550; 82553; 84484; 85025; 87081; 87324; 93005; 93970; 97802; 99285; J1165